=== PATIENT | male | born 1955 | race Caucasian/White ===

== ENCOUNTER 2018-12-22 15:16 | Emergency (ER) | payer BC, OTHER ==
[~2018-12-22] VITALS: Ht 175 cm; Wt 132.0 kg
[~2018-12-22 15:16] MED LIST: CEPH500T PO; ENAL1TAB16 PO
[2018-12-22] MEDS ORDERED: KETOROLAC 30 MG/ML VIAL IVP ONE (15:30)
--- NOTE | 2018-12-22 15:30 | ED Back Pain ---
General Chief Complaint: Back Problems Stated Complaint: RIGHT SIDE BACK PAIN Nursing Triage Note: PT AMBULATE TO TRIAGE WITH C/O RIGHT SIDED BACK PAIN STARTING THREE DAYS AGO. PT STATES IF FEELS LIKE A RIB IS OUT OF PLACE. PT STATES HIS SON, DR MENDOZA, ADJUSTED HIM YESTERDAY. Nursing Sepsis Screen: No Definite Risk Source of Information: Patient Exam Limitations: No Limitations (MARIA ELENA CERNA APRN) History of Present Illness Date Seen by Provider: Dec 22, 2018 Time Seen by Provider: 15:28 Initial Comments To ER with 3 day history of right posterolateral thoracic back pain. The pain is worsened by movement. No cough no shortness of breath and deep breathing does not worsen the pain. No abdominal pain no nausea no vomiting no dysuria. Location: Lumbar Spine Timing/Duration: 1-2 Days Severity: Moderate Pain/Injury Location: None Method of Injury: Unknown Associated Symptoms: denies symptoms (MARIA ELENA CERNA APRN) Allergies and Home Medications Allergies Coded Allergies: No Known Drug Allergies (Unverified , 11/07/11) Home Medications Cephalexin 500 Mg Tablet, 500 MG PO QID Prescribed by: SHELIA MURRAY on 10/17/15 0945 Enalapril/Hydrochlorothiazide 1 Tab Tablet, 1 TAB PO DAILY, (Reported) Hydrocodone Bit/Acetaminophen 1 Tab Tab, 1 EACH PO Q4-6HR PRN for PAIN-MODERATE Prescribed by: MARIA ELENA CERNA on 12/22/18 1642 Methocarbamol 750 Mg Tablet, 750 MG PO Q4H PRN for PAIN-MODERATE Prescribed by: MARIA ELENA CERNA on 12/22/18 1642 Patient Home Medication List Home Medication List Reviewed: Yes (MARIA ELENA CERNA APRN) Review of Systems Constitutional: see HPI EENTM: see HPI Respiratory: no symptoms reported; No cough, No short of breath Cardiovascular: no symptoms reported Genitourinary: no symptoms reported Musculoskeletal: no symptoms reported Skin: no symptoms reported Psychiatric/Neurological: No Symptoms Reported (MARIA ELENA CERNA APRN) Past Tlcmncc-Wyghwz-Agmefs Hx Patient Social History Type Used: Cigars Recent Foreign Travel: No Contact w/Someone Who Travel: No Recent Infectious Disease Expo: No Recent Hopitalizations: No Physical Abuse: No Sexual Abuse: No Mistreated: No Fear: No (MARIA ELENA CERNA APRN) Past Medical History Hypertension (MARIA ELENA CERNA APRN) Family Medical History No Pertinent Family Hx (MARIA ELENA CERNA APRN) Physical Exam Vital Signs Vital Signs - First Documented 12/22/18 15:19 Temp 36.7 Pulse 85 Resp 18 B/P (MAP) 195/97 (129) Pulse Ox 95 O2 Delivery Room Air (SHELIA MURRAY MD) Vital Signs Capillary Refill : Less Than 3 Seconds (MARIA ELENA CERNA APRN) Height, Weight, BMI Height: 5'9" Weight: 238lbs. oz. 107.517860bh; 43.00 BMI Method:Stated General Appearance: No Apparent Distress, WD/WN Neck: Full Range of Motion, Normal Inspection Respiratory: No Accessory Muscle Use, No Respiratory Distress Gastrointestinal: Non Tender, Soft Back: Normal Inspection; No Vertebral Tenderness; Other (nontender to palpation) Neurologic/Psychiatric: Alert, Oriented x3, No Motor/Sensory Deficits Skin: Normal Color, Warm/Dry (MARIA ELENA CERNA APRN) Procedures/Interventions Suture Size: 4-0 (MARIA ELENA CERNA APRN) Progress/Results/Core Measures Results/Orders Lab Results Laboratory Tests Test 12/22/18 15:44 12/22/18 15:45 Range/Units White Blood Count 10.8 4.3-11.0 10^3/uL Red Blood Count 4.30 L 4.35-5.85 10^6/uL Hemoglobin 13.1 L 13.3-17.7 G/DL Hematocrit 39 L 40-54 % Mean Corpuscular Volume 91 80-99 FL Mean Corpuscular Hemoglobin 30 25-34 PG Mean Corpuscular Hemoglobin Concent 34 32-36 G/DL Red Cell Distribution Width 13.1 10.0-14.5 % Platelet Count 275 130-400 10^3/uL Mean Platelet Volume 8.8 7.4-10.4 FL Neutrophils (%) (Auto) 71 42-75 % Lymphocytes (%) (Auto) 18 12-44 % Monocytes (%) (Auto) 8 0-12 % Eosinophils (%) (Auto) 2 0-10 % Basophils (%) (Auto) 0 0-10 % Neutrophils # (Auto) 7.7 1.8-7.8 X 10^3 Lymphocytes # (Auto) 2.0 1.0-4.0 X 10^3 Monocytes # (Auto) 0.9 0.0-1.0 X 10^3 Eosinophils # (Auto) 0.2 0.0-0.3 10^3/uL Basophils # (Auto) 0.0 0.0-0.1 10^3/uL Sodium Level 139 135-145 MMOL/L Potassium Level 3.7 3.6-5.0 MMOL/L Chloride Level 103 98-107 MMOL/L Carbon Dioxide Level 23 21-32 MMOL/L Anion Gap 13 5-14 MMOL/L Blood Urea Nitrogen 19 H 7-18 MG/DL Creatinine 1.13 0.60-1.30 MG/DL Estimat Glomerular Filtration Rate > 60 BUN/Creatinine Ratio 17 Glucose Level 117 H 70-105 MG/DL Calcium Level 9.5 8.5-10.1 MG/DL Corrected Calcium 8.5-10.1 MG/DL Total Bilirubin 0.5 0.1-1.0 MG/DL Aspartate Amino Transf (AST/SGOT) 23 5-34 U/L Alanine Aminotransferase (ALT/SGPT) 30 0-55 U/L Alkaline Phosphatase 62 40-136 U/L Total Protein 7.4 6.4-8.2 GM/DL Albumin 4.6 H 3.2-4.5 GM/DL Lipase 25 8-78 U/L Urine Color YELLOW Urine Clarity CLEAR Urine pH 5 5-9 Urine Specific [place] 1.005 L 1.016-1.022 Urine Protein NEGATIVE NEGATIVE Urine Glucose (UA) NEGATIVE NEGATIVE Urine Ketones NEGATIVE NEGATIVE Urine Nitrite NEGATIVE NEGATIVE Urine Bilirubin NEGATIVE NEGATIVE Urine Urobilinogen NORMAL NORMAL MG/DL Urine Leukocyte Esterase NEGATIVE NEGATIVE Urine RBC (Auto) NEGATIVE NEGATIVE Urine RBC NONE /HPF Urine WBC RARE /HPF Urine Squamous Epithelial Cells RARE /HPF Urine Crystals NONE /LPF Urine Bacteria NEGATIVE /HPF Urine Casts NONE /LPF Urine Mucus NEGATIVE /LPF Urine Culture Indicated NO (SHELIA MURRAY MD) Vital Signs/I&O 12/22/18 12/22/18 15:19 17:13 Temp 36.7 Pulse 85 64 Resp 18 18 B/P (MAP) 195/97 (129) 140/79 Pulse Ox 95 98 O2 Delivery Room Air Room Air (SHELIA MURRAY MD) Blood Pressure Mean: 129 Progress Progress Note : Progress Note I have seen and evaluated the patient with Maria Elena Cerna APRN. Bedside evaluation and discussion with the patient ensued. I agree with the plan of care. Discharge instructions given and I agree with discharge plan. (SHELIA MURRAY MD) Departure Communication (Admissions) Patient is feeling better at this time at 1640-given a prescription for muscle relaxer and hydrocodone for pain control. there is no rash to suggest herpes zoster in the area of pain, no skin lesions or erythema. Dr. Murray has evaluated the patient and agrees with plan of care. (MARIA ELENA CERNA APRN) Impression Primary Impression: Posterior chest pain Disposition: HOME, SELF-CARE Condition: Stable Departure-Patient Inst. Decision time for Depature: 16:41 (MARIA ELENA CERNA APRN) Referrals: GELA CAMPBELL MD (PCP/Family) Primary Care Physician Patient Instructions: Flank Pain, Upper Back Pain Add. Discharge Instructions: 1. Muscle relaxers as directed, hydrocodone as directed. Rest this weekend, return to ER for any worsening symptoms or other concerns. This seems to be musculoskeletal in origin, hopefully with a day or 2 of rest and some pain medication this will improve. Scripts Hydrocodone Bit/Acetaminophen (Hydrocodone/Acetaminophen 5/325mg Tablet) 1 Tab Tab 1 EACH PO Q4-6HR PRN for PAIN-MODERATE MDD 10 for 3 Days, #10 TAB Prov: MARIA ELENA CERNA APRN 12/22/18 Methocarbamol (Robaxin-750) 750 Mg Tablet 750 MG PO Q4H PRN for PAIN-MODERATE, #20 TAB Prov: MARIA ELENA CERNA APRN 12/22/18 Images Torso/Trunk 1 - (MARIA ELENA CERNA APRN) Copy Copies To 1: JOSIE MENDOZA PETER J APRN Dec 22, 2018 15:30 SHELIA MURRAY MD Dec 23, 2018 07:28
--- NOTE | 2018-12-22 15:32 | NUR ---
TO ROOM NO CHANGE FROM TRAIGE.
[2018-12-22 15:53] LABS: BASOPHILS % (AUTO) 0 % (0-10); EOSINOPHILS # (AUTO) 0.2 10^3/uL (0.0-0.3); EOSINOPHILS % (AUTO) 2 % (0-10); HEMATOCRIT 39 % (40-54); HEMOGLOBIN 13.1 G/DL (13.3-17.7); LYMPHOCYTES % (AUTO) 18 % (12-44); MEAN CORPUSCULAR HEMOGLOBIN 30 PG (25-34); MEAN CORPUSCULAR HGB CONC 34 G/DL (32-36); MEAN CORPUSCULAR VOLUME 91 FL (80-99); MEAN PLATELET VOLUME 8.8 FL (7.4-10.4); MONOCYTES # (AUTO) 0.9 X 10^3 (0.0-1.0); MONOCYTES % (AUTO) 8 % (0-12); NEUTROPHILS # (AUTO) 7.7 X 10^3 (1.8-7.8); NEUTROPHILS % (AUTO) 71 % (42-75); PLATELET COUNT 275 10^3/uL (130-400); RED CELL DISTRIBUTION WIDTH 13.1 % (10.0-14.5); WHITE BLOOD COUNT 10.8 10^3/uL (4.3-11.0)
[2018-12-22 15:54] LABS: BILIRUBIN,URINE NEGATIVE (NEGATIVE); CLARITY,URINE CLEAR; COLOR,URINE YELLOW; GLUCOSE, URINE (UA) NEGATIVE (NEGATIVE); KETONES,URINE NEGATIVE (NEGATIVE); LEUKOCYTE ESTERASE ,URINE NEGATIVE (NEGATIVE); NITRITE,URINE NEGATIVE (NEGATIVE); PH,URINE 5 (5-9); PROTEIN,URINE NEGATIVE (NEGATIVE)
[2018-12-22 16:02] LABS: BACTERIA,URINE NEGATIVE /HPF; SQUAMOUS EPITHELIAL CELL,UR RARE /HPF; WBC,URINE RARE /HPF
--- NOTE | 2018-12-22 16:05 | NUR ---
BACK FROM CT PAIN NOT ANY BETTER Lloyd MUNGUIA APRN NOTIFIED.
[2018-12-22 16:10] LABS: ALANINE AMINOTRANSFERASE 30 U/L (0-55); ALBUMIN 4.6 GM/DL (3.2-4.5); ALKALINE PHOSPHATASE 62 U/L (40-136); BILIRUBIN,TOTAL 0.5 MG/DL (0.1-1.0); BUN/CREATININE RATIO 17; CALCIUM 9.5 MG/DL (8.5-10.1); CARBON DIOXIDE 23 MMOL/L (21-32); CHLORIDE 103 MMOL/L (98-107); CREATININE SERUM 1.13 MG/DL (0.60-1.30); GFR ESTIMATED > 60; GLUCOSE 117 MG/DL (70-105); LIPASE 25 U/L (8-78); POTASSIUM 3.7 MMOL/L (3.6-5.0); SODIUM 139 MMOL/L (135-145); TOTAL PROTEIN 7.4 GM/DL (6.4-8.2)
--- NOTE | 2018-12-22 16:13 | Diagnostic Imaging Report ---
INDICATION: Right posterior back and rib pain for three days. EXAMINATION: PA and lateral views of the chest. FINDINGS: The heart size and vascularity are normal. Lungs are clear. There is no effusion. There is no acute bony abnormality. IMPRESSION: No acute abnormality is seen. There is no significant change from 02/04/2013. Dictated by: Dictated on workstation # [id number]
[2018-12-22] MEDS ORDERED: fentaNYL INJECTION 100 MCG/2 ML AMP IVP ONE (16:15)
--- NOTE | 2018-12-22 16:22 | Diagnostic Imaging Report ---
PROCEDURE: CT urinary tract, rule out kidney stone. TECHNIQUE: Multiple contiguous axial images were obtained through the abdomen and pelvis without the use of intravenous contrast. Auto Exposure Controls were utilized during the CT exam to meet ALARA standards for radiation dose reduction. INDICATION: Right-sided back pain. COMPARISON: There are no prior studies available for comparison. FINDINGS: There is no evidence for nephrolithiasis or urolithiasis. There is mild perinephric stranding about both kidneys however. This could be a sequela of prior episodes of inflammation/obstruction. 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 There is no obvious bladder abnormality evident. The prostate gland does not appear to be enlarged. There is no pelvic mass or free fluid collection evident. The appendix is not well-visualized but there are no indirect signs of acute appendicitis. There does appear to be a fair amount of fecal material within the ascending colon and some fecal material throughout the remainder of the colon. The liver, spleen, pancreas, adrenals, gallbladder, aorta and inferior vena cava are unremarkable for an acute abnormality. The stomach is not well-distended and consequently difficult to assess. There is mild atelectasis/scar formation involving the right middle lobe and lingula. The lung bases are otherwise generally clear. The bone windows show no evidence for an acute fracture. There is mild anterior wedging of T12 and L1. I suspect that these findings are long-standing in nature. IMPRESSION: 1. There is no evidence for nephrolithiasis or urolithiasis. The perinephric stranding about the kidneys could be a sequela of prior episodes of obstruction/inflammation however. 2. There is no acute abnormality of the abdomen or pelvis noted otherwise. 3. There are mild chronic changes involving the lung bases. Dictated by: Dictated on workstation # [id number]
[2018-12-22] MEDS ORDERED: METH-313 PO (16:42)
[2018-12-22] MEDS ORDERED: ACHD5005 PO (16:42)
[2018-12-22 17:13] VITALS: BP 140/79
== END 2018-12-22 17:13 | disposition home or self-care (01) ==
LOC: EDUNIT# 15:16 → ER 15:17
DX: R07.89 Other chest pain (principal); I10 Essential (primary) hypertension
CPT/HCPCS: 36415; 71046; 74176; 80053; 81000; 83690; 85025; 96374; 96375

== ENCOUNTER → 2018-12-25 | Outpatient (CLI) | payer OTHER ==
[~2018-12-25] MED LIST changes: +ACHD5005 PO; +CATHETER FLUSH 10 ML SYR IV PRN; +METH-313 PO
--- NOTE | 2018-12-25 09:23 | Diagnostic Imaging Report ---
EXAMINATION: US Abdomen complete. TECHNIQUE: Multiple real-time grayscale images were obtained over the right upper quadrant in various projections. HISTORY: RIGHT SIDE ABD PAIN COMPARISON: None available. FINDINGS: The liver is normal in size. The liver is normal in echogenicity. No focal lesions are seen. The portal vein is patent with hepatopedal flow. Gallbladder is normal without wall thickening or pericholecystic fluid. Sonographic Jasmine sign is negative. Common duct measures 4 mm. There is no biliary ductal dilation. The visualized portions of the pancreas are normal. The right kidney is normal without hydronephrosis. The left kidney is normal without hydronephrosis. The aorta is partially obscured by bowel gas. Visualized aorta is normal. Inferior vena cava is normal. The spleen is normal. No ascites is seen. IMPRESSION: 1. Unremarkable abdominal ultrasound. Dictated by: Dictated on workstation # [id number]
--- NOTE | 2018-12-25 12:31 | Diagnostic Imaging Report ---
HEPATOBILIARY SCAN DATE: December 25, 2018. INDICATION: 63-year-old male, right-sided abdominal pain. COMPARISON: CT abdomen and pelvis December 22, 2018. PROCEDURE: 5.37 mCi of Tc-99m choletec was administered intravenously and serial anterior planar images over the liver and upper abdomen were obtained. FINDINGS: There is homogenous activity throughout the liver with good clearance of background activity. This indicates good hepatocellular function. Biliary tree activity is seen at 15 minutes. The gallbladder is seen at 15 minutes. There is no enterogastric reflux. The biliary tree is patent. There is no evidence of acute cholecystitis. CCK was administered. Gallbladder ejection fraction was calculated to be 46%. IMPRESSION: Normal hepatobiliary scan. No evidence of acute or chronic cholecystitis. Dictated by: Dictated on workstation # [id number]
== END ==
LOC: RAD 07:34
PROVIDERS: ATTEND Surgery
DX: R10.9 Unspecified abdominal pain (principal)
CPT/HCPCS: 76700; 78227

== ENCOUNTER 2020-04-27 12:22 | Outpatient (CLI) | payer OTHER ==
[~2020-04-27 12:22] MED LIST changes: -CATHETER FLUSH 10 ML SYR IV PRN
== END 2020-04-27 13:00 | disposition home or self-care (01) ==
LOC: SLEEP 12:22
PROVIDERS: ATTEND Family Medicine
DX: G47.33 Obstructive sleep apnea (adult) (pediatric) (principal)
CPT/HCPCS: G0399